=== PATIENT | female | born 1995 | race Caucasian/White ===

== ENCOUNTER 2023-09-11 10:03 | Outpatient (CLI) | payer MEDICAID, SELFPAY ==
--- NOTE | 2023-09-11 10:15 | CRLHL7_ITS ---
For Patients: As a result of the Cures Act, medical imaging exams and procedure reports are released immediately into your electronic medical record. You may view this report before your referring provider. If you have questions, please contact your health care provider. INDICATION: First trimester scan, establish dates. COMPARISON: None. TECHNIQUE: Real-time bay-scale imaging of the pelvis was performed. FINDINGS: Sonographic imaging demonstrates a single living intrauterine gestation. The embryo demonstrates a regular cardiac rate measuring 169 beats per minute. The embryo`s crown-rump length measurement of 7.4 cm corresponds to a gestational age of 13 weeks 4 days with a sonographic due date of 03/14/2024. Yolk sac not visualized. There are no gross abnormalities noted within the embryo at this early state of development. The gestational sac has a normal appearance. There is no evidence of a perigestational hemorrhage. The amount of fluid within the sac appears appropriate for gestational age. The cervix is closed. The myometrium appears normal. The ovaries are not visualized. There are no suspicious fluid collections noted in the cul-de-sac. IMPRESSION: Single living intrauterine with sonographic gestational age 13 weeks 4 days and sonographic due date 03/14/2024. Dictated by Danyel Gaxiola MD @ 09/11/2023 12:10:29 PM (Electronically Signed)
== END 2023-09-11 10:04 | disposition home or self-care (01) ==
LOC: US 10:04
PROVIDERS: Visit Provider Registered Nurse
DX: Z34.91 Encounter for supervision of normal pregnancy, unspecified, first trimester (principal); Z3A.13 13 weeks gestation of pregnancy
CPT/HCPCS: 76801

== ENCOUNTER 2023-09-11 11:37 | Outpatient (CLI) | payer MEDICAID, SELFPAY ==
[2023-09-11 15:48] LABS: Chlamydia DNA Amplified* Not Detected (No Detected)
[2023-09-11 15:49] LABS: GC DNA Amplified* Not Detected (No Detected)
== END 2023-09-11 11:38 | disposition home or self-care (01) ==
PROVIDERS: Visit Provider Registered Nurse
DX: Z34.91 Encounter for supervision of normal pregnancy, unspecified, first trimester (principal); Z3A.13 13 weeks gestation of pregnancy
CPT/HCPCS: 80306; 86592; 86703; 86704; 86706; 86762; 86787; 86803; 86850; 86900; 86901; 87086; 87340; 87491; 87591

== ENCOUNTER 2023-12-18 13:00 | Outpatient (CLI) | payer MEDICAID, SELFPAY ==
--- NOTE | 2023-12-18 13:00 | US_ITS ---
Patient: CYNTHIA STODDARD Facility:?[facility] Patient ID:?[id number] Site Patient ID:?[id number]. Site :?[id number] Study:?US-OB Pelvis OB BPP W/ F/U GROWTH-12/18/2023 1:59:23 PM Ordering Physician:?MAEVE KHAN M.D. Final Report: INDICATION: Marginal placenta previa and growth check. TECHNIQUE: Ultrasound OB pelvis transabdominal. Real-time bay-scale imaging of the fetus was performed without stress testing. COMPARISON: None available. FINDINGS: Sonographic imaging demonstrates a single living intrauterine gestation. Fetus demonstrates a regular cardiac rate of 154 beats per minute. Fetus has a cephalic orientation. Anterior placenta. Placental edge is 8 cm from the cervix. Biometric measurements: Biparietal diameter: 28 weeks 1 day. Head circumference: 29 weeks 3 days. Abdominal circumference: 28 weeks 1 day. Femur length: 28 weeks 3 days. Estimated weight: 1216 grams, 80th percentile. Estimated ultrasound age by today`s measurements is 28 weeks 4 days with an estimated date of delivery March 07, 2024. Amniotic fluid volume appears borderline enlarged at 8 cm. breathing movements, motion, and tone were all observed. IMPRESSION: Single viable intrauterine with a biophysical profile 03/10. Adequate interval growth has been demonstrated. Amniotic fluid volume is in the upper limits of normal. Fetus is measuring at the 80th percentile by estimated weight. Dictated by Ulises Chopra MD @ 12/20/2023 10:49:55 AM Signed by:?Ulises Chopra MD @12/20/2023 10:49:55 AM (Electronic Signature)
== END 2023-12-18 13:01 | disposition home or self-care (01) ==
LOC: US 13:00
PROVIDERS: Visit Provider Obstetrics & Gynecology
DX: O44.03 Complete placenta previa NOS or without hemorrhage, third trimester (principal); Z3A.28 28 weeks gestation of pregnancy; Z82.79 Family history of other congenital malformations, deformations and chromosomal abnormalities
CPT/HCPCS: 76816; 76819

== ENCOUNTER 2024-01-01 13:45 | Outpatient (CLI) | payer MEDICAID, SELFPAY ==
--- NOTE | 2024-01-01 14:00 | CRLHL7_ITS ---
For Patients: As a result of the Cures Act, medical imaging exams and procedure reports are released immediately into your electronic medical record. You may view this report before your referring provider. If you have questions, please contact your health care provider. INDICATION: Previous mild polyhydramnios COMPARISON: Ob ultrasound from 12/18/2023 FINDINGS: Transabdominal examination of the is performed. A single intrauterine gestation is seen in cephalic presentation with regular cardiac activity at 126 beats per minute. The placenta is anterior and is free of the cervical os. The placental grade is 1 and the amniotic fluid volume is normal visually. The DVP remains mildly elevated at 8.3 cm, previously 8.3 cm. The REMY is mildly elevated at 21.7 cm, previously 24.8 cm. The biophysical profile score is 8/8 with no points off. IMPRESSION: 1. Single intrauterine gestation in cephalic presentation with regular cardiac activity. 2. Stable mild polyhydramnios. 3. Normal biophysical profile score of 8/8. Dictated by Kushal Arredondo MD @ 01/03/2024 4:06:17 PM (Electronically Signed)
== END 2024-01-01 13:46 | disposition home or self-care (01) ==
LOC: US 13:46
PROVIDERS: Visit Provider Obstetrics & Gynecology
DX: O40.9XX0 Polyhydramnios, unspecified trimester, not applicable or unspecified (principal)
CPT/HCPCS: 76819; 86592

== ENCOUNTER 2024-02-19 14:05 | Outpatient (CLI) | payer MEDICAID, SELFPAY ==
[2024-02-20 14:55] LABS: Strep B DNA Probe POSITIVE (Negative)
[2024-02-20 15:02] LABS: Strep B Susceptibility Needed? No
== END 2024-02-19 14:06 | disposition home or self-care (01) ==
LOC: NFLDREF 14:06
PROVIDERS: Visit Provider Obstetrics & Gynecology
DX: Z34.03 Encounter for supervision of normal first pregnancy, third trimester (principal)
CPT/HCPCS: 87081; 87653

== ENCOUNTER 2024-03-14 02:09 | Inpatient (IN) | payer MEDICAID, SELFPAY ==
[2024-03-14] VITALS (23 sets, daily range): BP systolic 102–142; BP diastolic 70–98; PULSE 95–117; RESP 16–18; TEMP 36.2–37.1; O2SAT 92–100; BMI 35.6
[2024-03-14] MEDS: LACTATED RINGERS 1000 ML 1,000 ML 125 ML IV (02:15)
[2024-03-14 02:28] LABS: Basophils Absolute Auto 0.02 K/uL (0.00-0.30); Basophils Percent Auto 0.2 % (0.0-3.0); Eosinophils Absolute Auto 0.11 K/uL (0.00-0.50); Eosinophils Percent Auto 1.1 % (0.0-7.0); Hematocrit 34.7 % (33.0-51.0); Hemoglobin* 11.5 gm/dL (12.0-16.0); Immature Granulocytes Abs Auto 0.16 K/uL (0.00-0.30); Immature Granulocytes Pct Auto 1.6 %; Lymphocytes Absolute Auto 2.11 K/uL (0.90-2.90); Lymphocytes Percent Auto 21.4 % (20-44); Mean Corpuscular HGB Conc 33 gm/dL (32-36); Mean Corpuscular Hemoglobin 31 pg (26-34); Mean Corpuscular Volume 92 fL (80-100); Monocytes Percent Auto 5.4 % (0.0-11.0); Neutrophils Absolute Auto 6.92 K/uL (1.7-7.0); Neutrophils Percent Auto 70.3 % (42.0-72.0); Platelet Count* 259 K/uL (140-440); RDW Coefficient of Variation % 13.6 % (11.5-15.5); Red Blood Count 3.77 m/uL (4.00-5.20); White Blood Count* 9.85 K/uL (4.50-11.00)
[2024-03-14 02:29] LABS: Slide Review Reflex No
[2024-03-14 02:57] LABS: Fibrinogen* 558 mg/dL (200-450)
--- NOTE | 2024-03-14 03:01 | CRLHL7_ITS ---
For Patients: As a result of the Cures Act, medical imaging exams and procedure reports are released immediately into your electronic medical record. You may view this report before your referring provider. If you have questions, please contact your health care provider. Indication: Rule out foreign body, no counts completed Technique: Intraoperative radiographs of the abdomen Comparison: None Findings/Impression: No internal radiopaque foreign body appreciated. Dictated by James Kearns MD @ 03/14/2024 3:52:16 AM (Electronically Signed)
[2024-03-14] MEDS: miSOPROStoL 800 MCG/4 TABLET PR (03:12)
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
--- NOTE | 2024-03-14 03:57 | P.OBPRC_ITS ---
Procedure Date of procedure: 03/14/24 Pre-op diagnosis: Non reassuring heart rate Post-op diagnosis: same (Placental abruption, uterine atony, intrapartum/ hemorrhage) Procedure Done: Global Will [facility] bill your pro fee for this procedure?: Yes Blood Loss Measurement Type: EBL (1200mL) Bakri Used: No IV fluids (mL): 1,600 Urine Output (mL): 50 Urine Output Comment: Clear at end of procedure Surgeon: Jackelyn Alex MD Anesthesia Type: General Findings: FINDINGS: Live-born male infant, vertex OP presentation, Apgars 3/5/5 at 1, 5 and 10 minutes respectively. weight pending. Evidence of large and multiple blood clots attached to placenta as well as intrauterine, changes of the myometrium on the left fundal area (bluish and mottled appearance) most consistent with placental abruption. Grossly normal bilateral fallopian tubes and ovaries. Procedure Name: Primary low transverse section Procedure Description: I was called by nursing staff at 0204 and notified to present to labor and delivery KEL[facility] as there was a patient at triage with heart rate in the 90s and this was confirmed to be different from maternal heart rate. On my way in I was able to discuss OB problem list and give some orders to nursing staff. Patient had been checked and she was found closed, thick and high. Instructions given to call a code white-called at 0208, prioritize on placement of IV line, collections of labs, hands and knees positioning. I gave orders to give one dose of terbutaline- given at . Upon arrival, patient was at OR 5 on hands and knees and heart rate had recovered to the 130s. I arrived at OR at around 0225. Recommendation was given to patient to proceed with emergency delivery since heart rate had been down for at least 20-25 minutes and she was far from delivery and current tracing was not reassuring. Verbal consent was obtained. Anesthesia arrived and recommendations given to proceed with general anesthetic as heart rate was recovered but tracing with minimal variability, continued decelerations, and no accelerations. A Betadine splash was made into the abdomen and surgical drape placed, proceeded with emergency delivery. PROCEDURE: A Pfannenstiel skin incision was made with a scalpel about 2 cm above symphysis pubic bone, 12-14 cm in length. This incision was carried down to the underlying layer of fascia with the scalpel. The fascia was incised in the midline and the incision extended laterally. The rectus muscles were then in the midline. The Harley O retractor was then placed into the incision. The lower uterine segment was then incised in a transverse fashion with the scalpel. Upon entry into the uterus, clear amniotic fluid was noted. The uterine incision was extended cephalo caudally with blunt finger fractionation. head was brought up to incision and with fundal pressure head was delivered straight OP. The rest of the body was delivered atraumatically. The cord was doubly clamped and cut, and the infant was handed off the field to warmer for evaluation. PPV was started immediately by OB nurses, please refer to pediatric provider for resuscitation details. The placenta was delivered spontaneously with umbilical cord traction and fundal massage. Clinical impression of placental abruption as above. The uterus was cleared of all clots and debris. The uterine incision was reapproximated in a running locking fashion with a 0 Vicryl suture. A 2nd layer of the same suture was used to imbricate in horizontal fashion. Uterine atony treated with IV Oxytocin 40 units, 1g of TXA, 800mcg of rectal Cytotec and 1 dose of IM Hemabate. The gutters were inspected and cleared of blood clot. All instruments and retractors were removed. Peritoneum was approximated with Vicryl 3-0 in a continuous fashion. Rectus muscles inspected and hemostasis secured. The fascia was reapproximated in a running fashion with a looped 0 Vicryl suture. The subcutaneous tissues were copiously irrigated, inspected and hemostasis secured. The subcutaneous fat layer was reapproximated with running sutures of 3-0 Vicryl. The skin was closed in a subcuticular fashion with 4-0 Monocryl. LiquiBand and dressing were applied. The patient tolerated the procedure well. Abdominal X-Ray was collected at the end of procedure and this was found normal w/o evidence of retained foreign objects. The patient was taken to the recovery room, awake, and in stable condition. She did receive 2 grams of IV Ancef during surgery. Admission lab work were reviewed intra op. Hemoglobin was found at 11.5 mg/dL, platelets: 259,000 and fibrinogen at 558. Will collect a new set of labs now and then repeat in 6 hours. Complications: Placental abruption, intrapartum/ hemorrhage Pathology: specimen obtained, sent to pathology Surgery Debrief Performed: Yes Condition: stable Disposition: PACU
--- NOTE | 2024-03-14 04:04 | P.ANES_ITS ---
Anesthesia Charges Start Date/Time Anesthesia Start Date: 03/14/24 Anesthesia Start Time: 02:50 Stop Date/Time Anesthesia Stop Date: 03/14/24 Anesthesia Stop Time: 03:57 Summary Emergency: PIECE MARKER SMALL ARMS
--- NOTE | 2024-03-14 04:05 | W.PM.NB ---
Nerve Block Nerve Block Time Seen by Provider: 03:50 Date Seen: 03/14/24 Type of block requested by surgeon for post-operative analgesia: TAP Side: bilateral Time out performed: Yes Verification of patient name: Yes Verification of date of : Yes Site marking: not applicable Name of person performing procedure: Jarred Viramontes Continuous monitoring Was continuous monitoring of O2 sat, B/P, director content marketing, recorded every 15 minutes?: Yes Procedure Checklist: sterile prep, needles and gloves Ultrasound guided. Images saved: Yes Medications given in 5ml increments after negative aspiration: Marcaine %: 0.25 mL: 30 Needle gauge: 20 and Exparel mL: 10 Needle gauge: 20 Block Charges Block Charge (with Pro Fee): TAP Bilateral Use of Ultrasound Machine for Block: Yes- US Guidance/pain block
[2024-03-14] MEDS: HYDROmorphone 0.5 mg/0.5 ml inj IVP (04:13)
[2024-03-14] MEDS: fentaNYL 100 MCG/2 ML inj 50 MCG IVP (04:20)
[2024-03-14 04:40] LABS: INR 0.88 (0.91-1.10); Partial Thromboplastin Time* 26 Seconds (23-33); Prothrombin Time 12.5 Seconds
[2024-03-14 04:41] LABS: Albumin* 3.8 g/dL (3.3-5.0); Chloride* 105 mmol/L (96-114)
[2024-03-14 04:42] LABS: Sodium* 134 mmol/L (135-149)
[2024-03-14 04:44] LABS: Alanine Aminotransferase* 13 U/L (4-35); Alkaline Phosphatase* 274 U/L (40-150); Anion Gap 7 mEq/L (7-15); Aspartate Amino Transferase* 26 U/L (12-35); Bilirubin Total* 0.4 mg/dL (0.1-1.5); Blood Urea Nitrogen* 11 mg/dL (5-24); Carbon Dioxide* 22 mmol/L (20-32); Creatinine* 0.6 mg/dL (0.5-1.5); Estimated Glomerular Filt Rate 125 ml/min; Glucose* 113 mg/dL (60-115); Total Protein* 6.8 g/dL (6.0-8.3)
[2024-03-14 04:45] LABS: Calcium* 9.2 mg/dL (8.4-10.6)
[2024-03-14 06:29] LABS: Basophils Percent Auto 0.1 % (0.0-3.0); Hematocrit 27.9 % (33.0-51.0); Hemoglobin* 9.3 gm/dL (12.0-16.0); Immature Granulocytes Pct Auto 0.4 %; Lymphocytes Percent Auto 5.4 % (20-44); Mean Corpuscular HGB Conc 33 gm/dL (32-36); Mean Corpuscular Hemoglobin 31 pg (26-34); Mean Corpuscular Volume 92 fL (80-100); Monocytes Percent Auto 2.9 % (0.0-11.0); Neutrophils Percent Auto 91.2 % (42.0-72.0); Platelet Count* 208 K/uL (140-440); RDW Coefficient of Variation % 13.5 % (11.5-15.5); Red Blood Count 3.04 m/uL (4.00-5.20); White Blood Count* 22.77 K/uL (4.50-11.00)
[2024-03-14 06:42] LABS: Slide Review Reflex No
[2024-03-14 06:43] LABS: Albumin* 3.1 g/dL (3.3-5.0); Chloride* 106 mmol/L (96-114); Potassium* 4.2 mmol/L (3.6-5.1); Sodium* 132 mmol/L (135-149)
[2024-03-14 06:45] LABS: Bilirubin Total* 0.2 mg/dL (0.1-1.5); Creatinine* 0.6 mg/dL (0.5-1.5); Estimated Glomerular Filt Rate 125 ml/min
[2024-03-14 06:46] LABS: Alanine Aminotransferase* 16 U/L (4-35); Alkaline Phosphatase* 233 U/L (40-150); Anion Gap 5 mEq/L (7-15); Aspartate Amino Transferase* 49 U/L (12-35); Blood Urea Nitrogen* 12 mg/dL (5-24); Calcium* 8.7 mg/dL (8.4-10.6); Carbon Dioxide* 21 mmol/L (20-32); Glucose* 93 mg/dL (60-115); Total Protein* 5.7 g/dL (6.0-8.3)
[2024-03-14 07:28] LABS: INR 0.95 (0.91-1.10); Prothrombin Time 13.2 Seconds
[2024-03-14 07:29] LABS: Fibrinogen* 429 mg/dL (200-450); Partial Thromboplastin Time* 25 Seconds (23-33)
[2024-03-14] MEDS: KETOROLAC 30 MG/ML inj IVP ×3 (09:44→21:29)
[2024-03-14] MEDS: CEFAZOLIN 2 GM INJ IVP (09:45)
[2024-03-14 12:16] LABS: Hematocrit 25.3 % (33.0-51.0); Hemoglobin* 8.4 gm/dL (12.0-16.0); Mean Corpuscular HGB Conc 33 gm/dL (32-36); Mean Corpuscular Hemoglobin 31 pg (26-34); Mean Corpuscular Volume 92 fL (80-100); Platelet Count* 191 K/uL (140-440); Red Blood Count 2.75 m/uL (4.00-5.20); White Blood Count* 15.78 K/uL (4.50-11.00)
[2024-03-14 12:22] LABS: Slide Review Reflex No
[2024-03-14 12:28] LABS: INR 0.98 (0.91-1.10); Prothrombin Time 13.6 Seconds
[2024-03-14 12:29] LABS: Fibrinogen* 388 mg/dL (200-450); Partial Thromboplastin Time* 26 Seconds (23-33)
[2024-03-14] MEDS: OXYCODONE 5 MG TABLET PO ×2 (12:46→20:15)
[2024-03-14] MEDS: ACETAMINOPHEN 500 MG TABLET 1000 MG PO (18:50)
[2024-03-14] MEDS: DOCUSATE SODIUM 100 MG CAPSULE PO (18:51)
--- NOTE | 2024-03-14 19:21 | PC.NURSE ---
The patient pumped for 20 minutes from [id number].... great colostrum output.... 12 ml 1 ml syringes in the frezer and labeled with the patients sticker. Mom is watching baby boy via camera at other hospital. Guzman is out and has voided as well as tolerating a regular diet well. MARIO Villalta, BSN
[2024-03-14] MEDS: VALACYCLOVIR HCL 500 MG TABLET 2000 MG PO (21:30)
[2024-03-15 00:30] VITALS: BP 112/75; PULSE 105; RESP 18; TEMP 36.7; O2SAT 97
[2024-03-15] MEDS: ACETAMINOPHEN 500 MG TABLET 1000 MG PO ×3 (01:02→13:20)
[2024-03-15] MEDS: KETOROLAC 30 MG/ML inj IVP ×2 (03:44→09:57)
[2024-03-15 04:22] VITALS: BP 125/85; PULSE 91; RESP 18; TEMP 36.5; O2SAT 98
[2024-03-15 09:08] VITALS: BP 132/83; PULSE 96; RESP 18; O2SAT 98
[2024-03-15 09:25] LABS: Hemoglobin* 8.8 gm/dL (12.0-16.0)
--- NOTE | 2024-03-15 09:38 | P.DS_ITS ---
DS: Providers Provider Date Seen: 03/15/24 Date of admission: 03/14/24 02:09 Primary care physician: Not a Local Provider Admitting Clinician: Rosio Alex MD Attending Physician on discharge: Paulina Mota CNM Date of Discharge: 03/15/24 DS: Diagnosis Discharge Diagnosis (1) Status post delivery: Status: Acute (2) Placental abruption affecting delivery: Status: Acute (3) Lactating mother: Status: Acute Exam Narrative: Exam Narrative: VSS. ?AfebrileGENERAL APPEARANCE: ?normal affect, alert, no distress MOOD: ?appropriate HEENT: normocephalic, neck supple, full ROM CHEST: ?Symmetrical chest wall movement. ?Normal respiratory effort. ?Clear to auscultation HEART: ?regular rate and rhythm ABDOMEN: ?soft, non-tender. Uterine fundus is firm, at Umbilicus, Midline and is appropriate for the stage of recovery. ?Bowel sounds present. EXTREMITIES: ?normal and no edema SKIN: warm, dry. ?Silver Nitrate Dressing on, clean/dry/intact ?No signs of infection noted. Const: Vital Signs, click to edit/add: Vital Signs - 24 hr 03/14/24 12:42 03/14/24 16:27 03/14/24 20:20 Temperature 98.5 F 98.7 F 98.6 F Pulse Rate [Pulse Oximeter] 106 H 104 H 107 H Respiratory Rate 18 18 18 Blood Pressure [Ri ght Arm] 119/83 127/83 121/80 Pulse Oximetry 98 97 98 Oxygen Delivery Me thod Room Air Room Air Room Air 03/15/24 00:30 03/15/24 04:22 03/15/24 09:08 Temperature 98.0 F 97.7 F Pulse Rate [Pulse Oximeter] 105 H 91 96 Respiratory Rate 18 18 18 Blood Pressure [Ri ght Arm] 112/75 125/85 132/83 Pulse Oximetry 97 98 98 Oxygen Delivery Me thod Room Air Room Air Room Air Documenting provider has reviewed patient's vital signs: yes OB - DS: Summary Hospital Course Hospital Course: Perlita is a 29 y.o. who was admitted to L & D for placental abruption with emerg ent section. ?She had an primary .?The patient feels well. ?The pain is well controlled with current medications. ?She has no new complaints. ?She is pumping for her in the NICU and reports things are going well.? the patient has done well.? Vitals have been stable.? She has remained afebrile.? Has a good appetite, is tolerating a general diet. ?She is voiding without difficulty.? She is passing gas and has not had a bowel movement.? She is ambulating and denies any dizziness.? Has Small amount of rubra lochia. ?She is undecided on her plan for prevention. She desires discharge today so she can be with her infant who was transferred to an NICU. Peripartum Data delivery method: Primary C/S; Non-Labored Procedures: Procedures Operation Date: 03/14/24 02:45 Actual Procedure Side Surgeon p Primary Low Transverse Section Not Applicable Rosio Clements MD complications: none [place] Infant Gender: Male Discharge Plan: Home (per NICU) Status at Discharge Functional status at discharge: independent ambulation Overall status at discharge: patient is progressing back to baseline Time Spent with Patient Time attestation: Total time spent providing and/or coordinating discharge services: Time spent: Less than 30 minutes Discharge Plan Discharge Disposition: Home, Self-Care Date of Admission: 03/14/24 02:09 Attending Provider on Discharge: Paulina Mota Primary Care Provider: Provider,Not a Local Condition: Stable Anticipated Discharge Date/Time: 03/15/24 12:00 Discharge Medications: New acetaminophen 500 mg Tablet 1,000 mg PO Q6H PRN (Reason: Pain) Qty: 0 0RF docusate sodium 100 mg Capsule 100 mg PO DAILY Qty: 90 2RF ibuprofen 600 mg Tablet 600 mg PO Q6H PRN (Reason: Pain) Qty: 90 1RF oxycodone 5 mg Tablet 5 - 10 mg PO Q4H PRN (Reason: Pain) Qty: 20 0RF ferrous sulfate 325 mg (65 mg iron) tablet 325 mg PO Q OTHER DAY Qty: 30 0RF Continued DHA 200 mg capsule PO calcium carbonate [Tums] 200 mg calcium (500 mg) tablet,chewable 200 mg PO BID omeprazole 20 mg capsule,delayed release(DR/EC) 20 mg PO QDAY Qty: 14 2RF Discontinued valacyclovir 1 gram tablet 1,000 mg PO BID Discharge Orders: Discharge Order (Routine); Ordered 03/15/24 Ordered By: Paulina Mota Patient Education: OB Over the Counter Medication Information, OB /Breast Feeding Additional Instructions: Discharge instructions were reviewed with the patient including signs and symptoms of infection and home going medications Lifting Restrictions: 20 pounds for 6 weeks No not submerge incision under water X 2 weeks? Nothing vaginally for 6 weeks: no tampons or intercourse Do not drive while taking narcotic pain medication(s) Off Work or School for 8 weeks Symptoms to report to doctor: * Bleeding that saturates more than one pad per hour * Passing clots larger than the size of a golf ball * Pain not relieved by prescribed medication * Fever above 100.4 degrees Fahrenheit * A foul vaginal odor * Difficulty in emotions, mood, and functions * Thoughts of hurting yourself and/or * Painful, reddened area in your breast * Any drainage, redness, or tenderness in your IV/epidural site * Severe headache that doesn't improve after taking medications * Changes in vision, including temporary loss of vision, blurred vision, and/or light sensitivity * Upper abdominal pain (usually under ribs on the right side) * Decrease in urination or painful, frequent urinating * Chest pain * Shortness of breath * Tenderness or pain with redness and/swelling in the calf(s) of your leg 2-week visit: incision check, discuss infant feeding concerns, review control options and screen for anxiety/depression. 6-week visit for an annual exam. consultation services are available to all mothers and babies for the first year after delivery.? To make an appointment, please call [phone]. Activity Level: Activity as Tolerated Discharge Diet: Regular Follow Up Appointments: Provider,Not a Local [Primary Care Provider] - [facility] [Provider Group] Forms: [employer] Info Instructions
[2024-03-15] MEDS: DOCUSATE SODIUM 100 MG CAPSULE PO (09:57)
--- NOTE | 2024-03-15 12:47 | PM.ANPOST ---
Post Anesthesia Note Post Anesthesia Note Patient seen: PACU Respiratory Status: adequate Cardiovascular Status: adequate Mental Status: baseline Pain: adequate Temp: baseline Anesthetic awareness: no Complications: none Follow care: none
[2024-03-15] MEDS: IBUPROFEN 600 MG TABLET PO (16:00)
[2024-03-15 23:21] LABS: Rapid Plasma Reagin (RPR) Non Reactive (Non Reactive)
--- NOTE | 2024-03-17 14:48 | PC.NURSE ---
Charting from Chloe Martin RN entered into this account due to 2 accounts on admission by this nurse. The charting was copied from the account [id number].
== END 2024-03-15 16:20 | disposition home or self-care (01) | DRG 786 ==
LOC: OB OUT 02:09 → OB 02:09
PROVIDERS: Advanced Practice Midwife; Obstetrics & Gynecology; Admitting Provider Obstetrics & Gynecology; Visit Provider Obstetrics & Gynecology
PROC: 10D00Z1 Extraction of Products of Conception, Low, Open Approach (ICD-10-PCS; CPT 59514; principal; 2024-03-14 02:30)
DX: O76 Abnormality in fetal heart rate and rhythm complicating labor and delivery (principal); O45.8X3 Other premature separation of placenta, third trimester; O72.1 Other immediate postpartum hemorrhage; O98.32 Other infections with a predominantly sexual mode of transmission complicating childbirth; O36.8130 Decreased fetal movements, third trimester, not applicable or unspecified; G89.18 Other acute postprocedural pain; A60.00 Herpesviral infection of urogenital system, unspecified; O99.824 Streptococcus B carrier state complicating childbirth; Z91.410 Personal history of adult physical and sexual abuse; Z91.411 Personal history of adult psychological abuse; F15.11 Other stimulant abuse, in remission; F12.21 Cannabis dependence, in remission; O99.344 Other mental disorders complicating childbirth; F41.9 Anxiety disorder, unspecified; F32.A Depression, unspecified; O99.334 Smoking (tobacco) complicating childbirth; F17.210 Nicotine dependence, cigarettes, uncomplicated; Z3A.39 39 weeks gestation of pregnancy; Z37.0 Single live birth
CPT/HCPCS: 01961; 36415; 64488; 74018; 76942; 80053; 85018; 85025; 85027; 85384; 85610; 85730; 86592; 86850; 86900; 86901; 88307; 99140; A9270; C9290; J0330; J0665; J0690; J1170; J1885; J2371; J2405; J2590; J2704; J2710; J3010; J7120